=== PATIENT | female | born 1975 | race African-American/Black ===

== ENCOUNTER 2018-05-14 22:02 | Emergency (ER) | payer OTHER ==
[~2018-05-14] VITALS: Ht 167.6 cm; Wt 100.0 kg
[2018-05-14 23:30] VITALS: BP 128/83
[2018-05-14] MEDS ORDERED: IBUPROFEN 800MG TABLET PO ONE (23:30)
== END 2018-05-15 01:52 | disposition home or self-care (01) ==
LOC: ER 23:00
DX: S80.01XA Contusion of right knee, initial encounter (principal); W01.0XXA Fall on same level from slipping, tripping and stumbling without subsequent striking against object, initial encounter; Y93.89 Activity, other specified; Y92.89 Other specified places as the place of occurrence of the external cause; Y99.8 Other external cause status
CPT/HCPCS: 73562; 73590; 81025; 99284

== ENCOUNTER 2018-05-17 12:32 | Emergency (ER) | payer OTHER ==
[~2018-05-17] VITALS: Ht 167.6 cm; Wt 90.0 kg
[2018-05-17 12:41] VITALS: BP 126/76
[2018-05-17] MEDS ORDERED: CYCLOBENZAPRINE 10MG TABLET PO ONE (15:00)
[2018-05-17] MEDS ORDERED: IBUPROFEN 600MG TABLET PO ONE (15:00)
== END 2018-05-17 15:45 | disposition home or self-care (01) ==
LOC: ER 14:28
DX: M25.561 Pain in right knee (principal); R03.0 Elevated blood-pressure reading, without diagnosis of hypertension; W01.0XXA Fall on same level from slipping, tripping and stumbling without subsequent striking against object, initial encounter; Y93.89 Activity, other specified; Y92.89 Other specified places as the place of occurrence of the external cause
CPT/HCPCS: 81025; 99283

== ENCOUNTER 2018-05-18 22:49 | Emergency (ER) | payer OTHER ==
[~2018-05-18] VITALS: Ht 167.6 cm; Wt 100.0 kg
[2018-05-19] MEDS ORDERED: KETOROLAC 60MG/2ML VIAL IM STA (01:40)
[2018-05-19] MEDS ORDERED: CYCLOBENZAPRINE 10MG TABLET PO ONE (02:45)
[2018-05-19] MEDS ORDERED: ACETAMINOPHEN 500MG TABLET PO ONE (02:45)
[2018-05-19 03:01] LABS: HEMATOCRIT. 33.6 % (36.0-48.0); HEMOGLOBIN. 11.6 g/dL (12.0-16.0); MEAN CORPUSCULAR HEMOGLOBIN 28.9 pg (28.0-32.0); MEAN CORPUSCULAR VOLUME 84.1 fL (81.0-99.0); PLATELET 385 x1000/uL (130-400); RED CELL DISTRIBUTION WIDTH 15.6 % (11.6-14.6)
[2018-05-19 03:08] LABS: CHLORIDE 105 mEq/L (98-107)
[2018-05-19 04:11] VITALS: BP 122/76
[2018-05-19 06:27] LABS: PLATELET ESTIMATE NORMAL
== END 2018-05-19 04:15 | disposition home or self-care (01) ==
LOC: ER 05-19 03:44
DX: M25.562 Pain in left knee (principal); M62.838 Other muscle spasm; W01.0XXA Fall on same level from slipping, tripping and stumbling without subsequent striking against object, initial encounter; Y93.89 Activity, other specified; Y92.89 Other specified places as the place of occurrence of the external cause
CPT/HCPCS: 36415; 80048; 85025; 96372; 99284; J1885

== ENCOUNTER 2019-11-28 14:20 | Emergency (ER) | payer OTHER ==
[~2019-11-28] VITALS: Ht 167.6 cm; Wt 107.0 kg
[2019-11-28] MEDS ORDERED: melatonin (14:33)
[2019-11-28] MEDS ORDERED: SODIUM CHLORIDE 0.9% 1,000 ML IV ONE (14:46)
[2019-11-28] MEDS ORDERED: ACETAMINOPHEN 325MG TABLET PO ONE (15:00)
[2019-11-28 15:56] LABS: CLARITY URINE CLOUDY (CLEAR); COLOR URINE DK YELLOW (YELLOW); KETONES URINE TRACE (NEGATIVE); LEUKOCYTE ESTERASE URINE 1+ (NEGATIVE); NITRITE URINE NEGATIVE (NEGATIVE); OCCULT BLOOD URINE 3+ (NEGATIVE); PH URINE 5.5 (4.5-8.0); PROTEIN URINE 1+ (NEGATIVE); SPECIFIC GRAVITY URINE 1.024 (1.005-1.030); UROBILINOGEN URINE 0.2 E.U./dL (0.2-1.0)
[2019-11-28 16:57] LABS: BASOPHILS % 0.5 % (0.0-2.0); EOSINOPHILS % 1.5 % (0.0-5.0); HEMATOCRIT. 28.1 % (36.0-48.0); HEMOGLOBIN. 9.7 g/dL (12.0-16.0); LYMPHOCYTES % 37.6 % (20.0-50.0); MEAN CORPUSCULAR HEMOGLOBIN 29.1 pg (28.0-32.0); MEAN CORPUSCULAR VOLUME 84.6 fL (81.0-99.0); MEAN PLATELET VOLUME 7.2 fl (7.4-10.4); MONOCYTES % 11.4 % (2.0-8.0); PLATELET 355 x1000/uL (130-400); RED BLOOD CELL COUNT 3.32 mill/uL (4.2-5.4)
[2019-11-28 16:58] LABS: CHLORIDE 107 mEq/L (98-107)
[2019-11-28 16:59] LABS: INR 0.9; PROTHROMBIN TIME 10.3 sec (9.6-11.0)
[2019-11-28 17:10] LABS: B-HCG QUANTITATIVE < 1 mIU/mL (<3)
[2019-11-28 18:44] VITALS: BP 122/73
== END 2019-11-28 18:44 | disposition home or self-care (01) ==
LOC: ER 14:38
DX: D25.9 Leiomyoma of uterus, unspecified (principal); N93.9 Abnormal uterine and vaginal bleeding, unspecified
CPT/HCPCS: 36415; 76830; 76856; 80053; 81003; 81025; 84702; 85025; 85610; 86850; 86900; 86901; 96360; 96361; 99284; J7030

== ENCOUNTER 2021-11-04 07:10 | Emergency (ER) | payer BC, OTHER ==
[~2021-11-04] VITALS: Ht 167.6 cm; Wt 79.0 kg
[~2021-11-04 07:10] MED LIST: melatonin
[2021-11-04] MEDS ORDERED: LORA-249 MT (07:51)
[2021-11-04 08:03] VITALS: BP 127/75
== END 2021-11-04 08:04 | disposition home or self-care (01) ==
LOC: ER 07:11
DX: F41.1 Generalized anxiety disorder (principal)
CPT/HCPCS: 99283